=== PATIENT | female | born 1975 | race Caucasian/White ===

== ENCOUNTER → 2022-12-17 | Outpatient (CLI) | payer OTHER ==
--- NOTE | 2022-12-18 21:22 | MM ---
Reason for Exam: Screening (asymptomatic). Baseline mammogram. Patient History: Menarche at age 13. Patient has no children. Last menstrual period: 11/27/2022 Risk Values: Allison 5 year model risk: 0.9%. NCI Lifetime model risk: 10.5%. Prior Study Comparison: Patient's first Mammogram. Tissue Density: The breast tissue is heterogeneously dense. This may lower the sensitivity of mammography. Findings: Analyzed By CAD. In the right breast, a 1 cm circumscribed isodense mass at the 2 to 3:00 position posteriorly is noted. Further evaluation recommended. This may represent a benign cyst. In addition, on the right CC view, there is an area of asymmetric density laterally at a middle depth that may represent superimposition shadow but further evaluation is recommended. Otherwise, no other discrete abnormality seen on either side. Overall Assessment: Incomplete: need additional imaging evaluation, BI-RAD 0 Management: Special View Mammogram of the right breast. Diagnostic Breast Ultrasound of the right breast. Additional views to include 3-D lateral view. 4 the lateral asymmetric density, recommend spot 3-D CC and 3-D CC rolled views. Subsequent ultrasound for the 2-3 o'clock circumscribed mass and additional lateral scanning for any persisting abnormality. [facility] will attempt to contact patient to return for supplemental views and ultrasound if indicated. Electronically signed and approved by: Marci Davis M.D. Radiologist
== END | disposition home or self-care (01) ==
LOC: RADMAMWWP 16:06
PROVIDERS: ATTEND Family Medicine
DX: Z12.31 Encounter for screening mammogram for malignant neoplasm of breast (principal)
CPT/HCPCS: 77067